=== PATIENT | female | born 1980 | race Caucasian/White ===

== ENCOUNTER → 2017-09-08 | Outpatient (CLI) | payer BC ==
[~2017-09-08] MED LIST: ASPI-1471 PO; ASPI-757 PO; CEPH-13 PO; CHOL100052 PO; KRIL500C2 PO; LOR5 PO; LORA-629 PO; METH-284 PO; MONT10TA PO; ONDA4TAB PO; PANT40TA65 PO; SELE200T32 PO; TURM538C PO
--- NOTE | 2017-09-08 10:43 | RADIOLOGY IMAGING REPORT ---
FACILITY: [facility] - [place] PATIENT NAME: Marilyn Loera : 1980 MR: [id number] V: [id number] EXAM DATE: ORDERING PHYSICIAN: MARGARITO WILSON TECHNOLOGIST: Location: [facility] [place] Patient: Marilyn Loera : 1980 Visit/Account:[id number] Date of Sevice: 09/08/2017 TRANSVAGINAL NON-OB HISTORY: LEFT LOWER QUADRANT ABDOMINAL SWELLING, MASS AND LUMP TECHNIQUE: Transvaginal ultrasound pelvis. COMPARISON: CT abdomen pelvis March 26, 2017 FINDINGS: Uterus: ; 6.5 cm length x 3.4 cm AP x 4.2 cm transverse. Myometrium: Unremarkable. Endometrium: There is an IUD within the endometrial canal.; double thickness 2.2 mm. Cervix: Nabothian cysts. Ovaries: Right - 1.8 x 2.9 x 2 cm Left - 3.8 x 2.5 x 2.5 cm is a complex heterogeneous mass in the left ovary measuring 2.5 x 2 x 1.8 cm. There is peripheral blood flow. Blood flow is documented in each ovary by duplex Doppler ultrasound. Adnexa: Grossly unremarkable. Free pelvic fluid: None. IMPRESSION: IUD appears to be in good position Nabothian cysts There is a 2.5 x 2 x 1.8 cm heterogeneous mass with peripheral blood flow in the left ovary. Previou s left ovarian mass from CT March 26, 2017 measured fluid density. This could represent hemorrhag ic or complex cyst or endometrioma although other ovarian mass is not excluded and short-term interva l follow-up pelvic ultrasound in 2-3 months recommended unless clinical findings were immediate atten tion Report Dictated By: Britt Conner MD at 09/08/2017 10:34 AM Report E-Signed By: Britt Conner MD at 09/08/2017 10:39 AM JONASN:ANDREWS
== END ==
LOC: RAD 09:05
PROVIDERS: ATTEND Student in an Organized Health Care Education/Training Program
DX: N88.8 Other specified noninflammatory disorders of cervix uteri (principal); N83.202 Unspecified ovarian cyst, left side; Z97.5 Presence of (intrauterine) contraceptive device
CPT/HCPCS: 76830

== ENCOUNTER → 2018-08-25 | Outpatient (CLI) | payer BC ==
[2018-08-25 12:36] LABS: PLATELET COUNT, AUTOMATED 234 K/uL (150-450)
== END ==
LOC: LAB 11:57
PROVIDERS: ATTEND Hospitalist
DX: E05.00 Thyrotoxicosis with diffuse goiter without thyrotoxic crisis or storm (principal); E34.9 Endocrine disorder, unspecified; Z51.81 Encounter for therapeutic drug level monitoring
CPT/HCPCS: 36415; 84075; 84439; 84443; 84445; 85025

== ENCOUNTER → 2018-11-03 | Outpatient (CLI) | payer BC | LOC: LAB 16:17 | PROVIDERS: ATTEND Advanced Practice Midwife | DX: Z00.00 Encounter for general adult medical examination without abnormal findings (principal) | CPT/HCPCS: 36415; 86592; 86695; 86696; 86703; 86803; 87340; 87491; 87591 ==